=== PATIENT | female | born 1985 | race Caucasian/White ===

== ENCOUNTER 2019-03-31 14:12 | Emergency (ER) | payer OTHER ==
[2019-03-31 14:17] VITALS: BP 117/68; PULSE 85; TEMP 97.9; BMI 32.2
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
[2019-03-31] MEDS ORDERED: DIPHTH,PERTUSS(ACELL),TET 0.5 ML DISP.SYRIN IM ONE ×2 (14:35→14:37)
[2019-03-31] MEDS ORDERED: IBUPROFEN 400 MG TABLET (FP) PO ONE ×2 (14:35→14:37)
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
== END 2019-03-31 15:17 | disposition home or self-care (01) ==
LOC: JERFT 14:12
PROC: 3E0234Z Introduction of Serum, Toxoid and Vaccine into Muscle, Percutaneous Approach (ICD-10-PCS; principal; 2019-03-31)
DX: S16.1XXA Strain of muscle, fascia and tendon at neck level, initial encounter (principal); S46.812A Strain of other muscles, fascia and tendons at shoulder and upper arm level, left arm, initial encounter; S00.01XA Abrasion of scalp, initial encounter; V49.88XA Car occupant (driver) (passenger) injured in other specified transport accidents, initial encounter; Y92.412 Parkway as the place of occurrence of the external cause; W22.19XA Striking against or struck by other automobile airbag, initial encounter; Y93.89 Activity, other specified; Y99.8 Other external cause status
CPT/HCPCS: 71046-TC-FY; 71101-TC-LT-FY; 90715; 99284-25